=== PATIENT | female | born 1995 | race Two or more races ===

== ENCOUNTER → 2024-06-05 | Outpatient (CLI) | payer OTHER, SELFPAY ==
--- NOTE | 2024-06-05 | MASS_PTH ---
PATIENT: LEE FERNANDEZ LOC: [facility] U#:[id number] AGE/SX: 28/F ROOM: RE06/05/[address]: Dr. Luis E Perae MD : 1995 BED: DIS: 06/05/2024 SPEC #: [id number] RECD: 06/05/24 15:06 STATUS: SOL GILBERT #: [id number] JAIMEE: 06/05/24 00:[address]: Luis E Perea DEPT: SURGICAL PATHOLOGY RECD BY: Malathi Chauhan ENTERED: 06/06/24 07:58 SP TYPE: Mass OTHR DR: No Primary Care Phys WAS Tissues: Neck, NOS Procedures: Surgery Specimen Level III HEADER OPERATION: Excision neck mass PRE-OP DIAGNOSIS: Neck mass TISSUE SUBMITTED: Neck mass MICROSCOPIC DIAGNOSIS Soft tissue mass of neck, excision: Mature adipose tissue consistent with lipoma. AM/mr 06/07/2024 MICROSCOPIC DESCRIPTION Slides are reviewed. GROSS DESCRIPTION Received in fixative is one container labeled with the patient's name and designated Neck mass. The specimen consists of are multiple irregular pieces of yellow adipose tissue measuring in aggregate 5.5 x 4.5 x 2.0cm. Sections reveal yellow adipose cut surfaces without area of hemorrhage, necrosis, or cystic degeneration. Bottoming Room Supervisor sections are submitted in four cassettes. 06/06/2024 TC:1 CPT:62345
== END | disposition home or self-care (01) ==
LOC: LABSPEC 15:50
PROVIDERS: Referring Provider Otolaryngology; Visit Provider Otolaryngology
DX: R22.1 Localized swelling, mass and lump, neck (principal)
CPT/HCPCS: 88304

== ENCOUNTER → 2025-05-21 | Outpatient (CLI) | payer OTHER, SELFPAY ==
--- NOTE | 2025-05-20 10:30 | MASS_PTH ---
PATIENT: LEE FERNANDEZ LOC: [facility] U#:[id number] AGE/SX: 29/F ROOM: RE05/21/[address]: Dr. Luis E Perea MD : 1995 BED: DIS: 05/21/2025 SPEC #: [id number] RECD: 05/21/25 15:48 STATUS: SOL RERichard #: [id number] JAIMEE: 05/20/25 10:[address]: Luis E Perea DEPT: SURGICAL PATHOLOGY RECD BY: Ej Jefferson ENTERED: 05/22/25 10:56 SP TYPE: Mass OTHR DR: No Primary Care Phys Tissues: A - Neck, NOS Procedures: Surgery Specimen Level IV HEADER OPERATION: Excision neck mass PRE-OP DIAGNOSIS: Localized swelling, mass and lump, neck TISSUE SUBMITTED: A- Left neck mass MICROSCOPIC DIAGNOSIS A. Neck, left, mass, excision: Skin with abundant fibroadipose tissue, focal scar, and a small benign lymph node. MICROSCOPIC DESCRIPTION Slides are reviewed. GROSS DESCRIPTION A. Received in formalin labeled with the patient's name and date of . Designated as neck mass is a 5.0 x 4.4 x 3.5 cm mendez-pink to yellow apparent soft tissue mass surfaced by a 3.5 x 1.3 cm mendez skin ellipse devoid of orientation and with a central, 1.8 x 0.4 cm scar. The external surfaces are inked black. Sectioning reveals mendez-yellow, homogenous cut surfaces with focal fibrosis. Structural Draftsman sections are submitted in 2 cassettes. MO 05/22/2025 CPT:51322
== END | disposition home or self-care (01) ==
LOC: LABSPEC 15:19
PROVIDERS: Referring Provider Otolaryngology; Visit Provider Otolaryngology
DX: R22.1 Localized swelling, mass and lump, neck (principal)
CPT/HCPCS: 88304